=== PATIENT | female | born 2005 | race African-American/Black ===

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

== ENCOUNTER 2025-07-01 17:00 | Emergency (ER) | payer OTHER, SELFPAY ==
[2025-07-01] MEDS ORDERED: Ondansetron PF 4 MG/2 ML Vial ONE (18:10)
[2025-07-01] MEDS ORDERED: Ketorolac Tromethamine 30 MG (1 mL) VIAL ONE (18:10)
[2025-07-01 18:28] LABS: #Basophils 0.06 10x3/uL (0.0-0.2); #Eosinophils 0.07 10x3/uL (0.0-0.7); #Monocytes 0.85 10x3/uL (0.11-0.59); #Neutrophils 4.18 10x3/uL (1.40-6.50); %Basophils 0.7 % (0.0-1.0); %Eosinophils 0.8 % (0.0-10.0); %Lymphocytes 37.6 % (21.0-51.0); %Monocytes 10.2 % (0.0-10.0); %Neutrophils 50.2 % (42.0-75.0); Hematocrit 25.5 % (36.0-47.0); Hemoglobin 9.1 g/dL (12.0-16.0); Mean Corpuscular Hemoglobin 35.7 pg (27.0-31.0); Mean Corpuscular Volume 100.0 fL (78.0-98.0); Platelet Count 353 10x3/uL (130-400); Red Blood Cell (RBC) Count 2.55 mill/uL (4.20-5.40); White Blood Cell (WBC) Count 8.34 10x3/uL (4.8-10.8)
[2025-07-01 18:40] LABS: BHCG - Serum Negative (NEGATIVE); Pregs Control Background? CLEAR/WHITE (CLR/WHITE); Pregs Control Bar Appear? YES (CONTROL BAR)
[2025-07-01 18:42] LABS: ALT (SGPT) 12 U/L (Less than 34); AST (SGOT) 35 U/L (11-34); Albumin 4.3 g/dL (3.1-4.5); Alkaline Phosphatase 57 U/L (40-110); Anion Gap 11 mmol/L (10-20); BUN (Urea Nitrogen) 8 mg/dL (7.0-18.7); Bilirubin, Total 3.3 mg/dL (0.3-1.2); Calc. Creatinine Clearance 0 mL/min (70-130); Calcium 8.7 mg/dL (7.8-10.44); Carbon Dioxide 23 mmol/L (22-29); Chloride 106 mmol/L (98-107); Globulin 3.8 g/dL (2.4-3.5); Glucose 91 mg/dL (70-105); Potassium 3.4 mmol/L (3.5-5.1); Sodium 137 mmol/L (136-145)
== END 2025-07-01 19:34 | disposition home or self-care (01) ==
LOC: ERS 17:00
DX: D57.00 Hb-SS disease with crisis, unspecified (principal); I10 Essential (primary) hypertension; Z79.899 Other long term (current) drug therapy
CPT/HCPCS: 71045; 80053; 84703; 85025; 85046; 93005; 96361; 96374; 96375; J1885; J2270; J2405

== ENCOUNTER 2025-10-10 18:53 | Emergency (ER) | payer SELFPAY ==
[2025-10-10] MEDS ORDERED: diphenhydrAMINE 50 MG/ML VIAL ONE (19:43)
[2025-10-10] MEDS ORDERED: Ondansetron PF 4 MG/2 ML Vial ONE (19:43)
[2025-10-10 19:59] LABS: #Basophils 0.06 10x3/uL (0.0-0.2); #Eosinophils Less than 0.03 10x3/uL (0.0-0.7); #Monocytes 0.83 10x3/uL (0.11-0.59); #Neutrophils 2.15 10x3/uL (1.40-6.50); %Basophils 0.9 % (0.0-1.0); %Eosinophils 0.3 % (0.0-10.0); %Lymphocytes 54.3 % (21.0-51.0); %Monocytes 12.3 % (0.0-10.0); %Neutrophils 31.8 % (42.0-75.0); Hematocrit 27.5 % (36.0-47.0); Hemoglobin 9.5 g/dL (12.0-16.0); Mean Corpuscular Hemoglobin 34.9 pg (27.0-31.0); Mean Corpuscular Volume 101.1 fL (78.0-98.0); Platelet Count 381 10x3/uL (130-400); Red Blood Cell (RBC) Count 2.72 mill/uL (4.20-5.40); White Blood Cell (WBC) Count 6.76 10x3/uL (4.8-10.8)
[2025-10-10 20:16] LABS: ALT (SGPT) 17 U/L (Less than 34); AST (SGOT) 49 U/L (11-34); Albumin 4.4 g/dL (3.1-4.5); Alkaline Phosphatase 63 U/L (40-110); Anion Gap 15 mmol/L (10-20); BUN (Urea Nitrogen) 5 mg/dL (7.0-18.7); Bilirubin, Total 2.4 mg/dL (0.3-1.2); Calc. Creatinine Clearance 0 mL/min (70-130); Calcium 9.4 mg/dL (7.8-10.44); Carbon Dioxide 23 mmol/L (22-29); Chloride 110 mmol/L (98-107); Globulin 3.8 g/dL (2.4-3.5); Glucose 87 mg/dL (70-105); Lipase 39 U/L (8-78); Potassium 3.9 mmol/L (3.5-5.1); Sodium 144 mmol/L (136-145)
[2025-10-10 20:20] LABS: BHCG - Serum Negative (NEGATIVE); Pregs Control Background? CLEAR/WHITE (CLR/WHITE); Pregs Control Bar Appear? YES (CONTROL BAR)
== END 2025-10-10 21:37 | disposition home or self-care (01) ==
LOC: ERS 18:53
DX: D57.00 Hb-SS disease with crisis, unspecified (principal); I10 Essential (primary) hypertension; Z79.899 Other long term (current) drug therapy
CPT/HCPCS: 71045; 80053; 83690; 84484; 84703; 85025; 85046; 93005; 96361; 96374; 96375; J1200; J2270; J2405

== ENCOUNTER 2025-10-19 20:36 | Emergency (ER) | payer MEDICARE, SELFPAY ==
[2025-10-19 22:11] LABS: Bacteria/HPF None Seen HPF (None Seen); CAUTI Indications for Culture Fever or rigors; Glucose, Urine (Dipstick) Normal (Negative); Leukocyte Negative Leu/uL (Negative); Protein, Urine (Dipstick) Negative (Neg-Trace); RBC/HPF 0-3 HPF (0-3); Specific Gravity, Urine 1.011 (1.002-1.036); WBC/HPF 0-3 HPF (0-3)
[2025-10-19 22:13] LABS: Urine Culture Reflex No No
[2025-10-19 22:16] LABS: Hematocrit 24.1 % (36.0-47.0); Hemoglobin 8.7 g/dL (12.0-16.0); Mean Corpuscular Hemoglobin 34.3 pg (27.0-31.0); Mean Corpuscular Volume 94.9 fL (78.0-98.0); Platelet Count 327 10x3/uL (130-400); Red Blood Cell (RBC) Count 2.54 mill/uL (4.20-5.40); White Blood Cell (WBC) Count 7.27 10x3/uL (4.8-10.8)
[2025-10-19 22:28] LABS: BHCG - Serum Negative (NEGATIVE); Pregs Control Background? CLEAR/WHITE (CLR/WHITE); Pregs Control Bar Appear? YES (CONTROL BAR)
[2025-10-19 22:33] LABS: ALT (SGPT) 16 U/L (Less than 34); AST (SGOT) 54 U/L (11-34); Albumin 4.3 g/dL (3.1-4.5); Alkaline Phosphatase 67 U/L (40-110); Anion Gap 12 mmol/L (10-20); BUN (Urea Nitrogen) 4 mg/dL (7.0-18.7); Bilirubin, Total 1.8 mg/dL (0.3-1.2); Calc. Creatinine Clearance 0 mL/min (70-130); Calcium 9.3 mg/dL (7.8-10.44); Carbon Dioxide 23 mmol/L (22-29); Chloride 107 mmol/L (98-107); Globulin 4.1 g/dL (2.4-3.5); Glucose 97 mg/dL (70-105); Potassium 3.6 mmol/L (3.5-5.1); Sodium 138 mmol/L (136-145)
[2025-10-19] MEDS ORDERED: Ondansetron PF 4 MG/2 ML Vial ONE (22:48)
[2025-10-19 22:54] LABS: Nucleated RBC (Manual Ct) 8 % (0); Platelet Adequacy Comment Platelets Normal; Sickle Cells SLIGHT = 1-5 cells HPF (None Seen); Smudge Cells 3.9 %; Target Cells SLIGHT = 2-5 cells HPF (0-1)
[2025-10-20] MEDS ORDERED: Acetaminophen 325 MG TAB ONE (00:32)
[2025-10-20] MEDS ORDERED: diphenhydrAMINE 50 MG/ML VIAL ONE (00:33)
[2025-10-20] MEDS ORDERED: HYDROmorphone 0.5 MG/0.5 ML SYRINGE ONE ×2 (03:44→05:42)
== END 2025-10-20 05:55 | disposition home or self-care (01) ==
LOC: ERS 20:36
DX: D57.00 Hb-SS disease with crisis, unspecified (principal); I10 Essential (primary) hypertension; Z79.899 Other long term (current) drug therapy
CPT/HCPCS: 71045; 80053; 81001; 84484; 84703; 85025; 85046; 87428; 93005; 96361; 96374; 96375; 96376; 99284; J1171; J1200; J2270 ×2; J2405